=== PATIENT | female | born 1950 | race Caucasian/White ===

== ENCOUNTER 2017-03-05 09:04 | Inpatient (IN) | payer OTHER, BC ==
[2017-02-19 15:22] VITALS: BMI 31.3
--- NOTE | 2017-03-04 08:49 | HP ---
Satellite [facility] [place] - Chief Complaint Chief Complaint: right hip pain - Past Medical History Allergies/Adverse Reactions: Allergies Allergy/AdvReac Type Severity Reaction Status Date / Time No Known Allergies Allergy Verified 02/19/17 15:22 - Current Medications Current Medications: Home Medications Medication Instructions Recorded Atenolol [Tenormin -] 50 mg PO DAILY 02/19/17 Buspirone HCl 15 mg PO DAILY 02/19/17 Cholecalciferol (Vitamin D3) 1 each PO DAILY 02/19/17 [Vitamin D3] Ferrous Sulfate 325 mg PO DAILY 02/19/17 Methadone [Dolophine -] 80 mg PO DAILY 02/19/17 Naproxen [Naprosyn -] 500 mg PO PRN PRN 02/19/17 Sertraline HCl [Zoloft] 200 mg PO DAILY 02/19/17 Satellite Physical Exam - Physical Examination General Appearance: Well Nourished, Well Developed, Alert & Oriented x3 ENT: Clear Lung: Normal air movement Heart: Regular rate & rhythm Extremities: Other (right hip- + ttp, decr rom, nvi xrays show severe hip djd) Neurological: Intact, Alert, Oriented Satellite Impression/Plan - Impression/Plan Impression: right hip djd Operative Procedure: right barrie thr Date to be Performed: 03/05/17
[2017-03-05] MEDS ORDERED: oxyCODONE HCL 10 MG SUSTAINED ACTING TABLET PO ONE (09:28)
[2017-03-05] MEDS ORDERED: TRANEXAMIC ACID 1000 MG/10 ML VIAL IVPUSH ONE (09:28)
[2017-03-05] MEDS ORDERED: CEFAZOLIN 2 GM in DEXTROSE 5%-WATER - 50 ML IVPB ONE (09:28)
[2017-03-05] MEDS ORDERED: GABAPENTIN 300 MG CAPSULE (FP) PO ONE (09:28)
[2017-03-05] MEDS ORDERED: CELECOXIB 200 MG CAPSULE PO ONE (09:28)
[2017-03-05] MEDS ORDERED: BUPIVACAINE HCL/PF (5 MG/ML) 30 ML VIAL IJ ONE (10:59)
[2017-03-05] MEDS ORDERED: MIDAZOLAM HCL 2 MG/2 ML SINGLE DOSE VIAL ONE (10:59)
[2017-03-05] MEDS ORDERED: DEXAMETHASONE SOD PHOSPHATE/PF 10 MG/ML SDV ONE (10:59)
[2017-03-05] MEDS ORDERED: EPINEPHrine/PF 1 MG/1 ML (1:1,000) AMPULE ONE (10:59)
[2017-03-05] MEDS ORDERED: ceFAZolin SODIUM 1 GM VIAL ONE (11:16)
[2017-03-05] MEDS ORDERED: VANCOMYCIN 1,000 MG VIAL (RESTRICTED TO ID ONLY) ONE (11:16)
[2017-03-05] MEDS ORDERED: TRANEXAMIC ACID 1000 MG/10 ML VIAL ONE (12:17)
[2017-03-05] MEDS ORDERED: PROPOFOL 20 ML ONE ×2 (12:29)
[2017-03-05] MEDS ORDERED: MAGNESIUM HYDROX 2400MG/30ML ORAL SUSPENSION 30 ML CUP PO PRN (14:07)
[2017-03-05] MEDS ORDERED: MAG HYDROX/AL HYDROX/SIMETH 30 ML UNIT-DOSE CUP PO PRN (14:07)
--- NOTE | 2017-03-05 14:12 | OP ---
Operative Note - Note: Operative Date: 03/05/17 (bethanie) Pre-Operative Diagnosis: right hip djd Operation: right barrie thr Post-Operative Diagnosis: Same as Pre-op Surgeon: Jax Mckenzie Service Or Work Dispatcher Chief: Tone Hooker Anesthesiologist/PLANT CYTOLOGIST: Kale Melgoza Anesthesia: Spinal, Local Specimens Removed: femoral head Estimated Blood Loss (mls): 300 Operative Report Dictated: Yes
[2017-03-05] MEDS ORDERED: LACTATED RINGERS SOLUTION 1,000 ML IV SCH ×2 (14:15→14:45)
[2017-03-05] MEDS ORDERED: oxyCODONE HCL 5 MG TABLET PO PRN (14:31)
[2017-03-05] MEDS ORDERED: ACETAMINOPHEN 325 MG TABLET (FP) ONE (15:39)
[2017-03-05] MEDS: ACETAMINOPHEN 325 MG TABLET (FP) PO SCH ×3 (15:43→21:23)
[2017-03-05] MEDS: CEFAZOLIN 2 GM/D5W 50 ML IVPB SCH (19:28)
[2017-03-05] MEDS: oxyCODONE HCL 5 MG TABLET PO PRN (19:29)
[2017-03-05] MEDS: SENNOSIDES/DOCUSATE COMBO (SENNA PLUS) TABLET (UD) PO SCH (21:23)
[2017-03-05] MEDS: GABAPENTIN 300 MG CAPSULE (FP) PO SCH (21:23)
[2017-03-05] MEDS: oxyCODONE HCL 10 MG SUSTAINED ACTING TABLET PO SCH (21:23)
[2017-03-06] MEDS: oxyCODONE HCL 5 MG TABLET PO PRN ×4 (03:21→21:25)
[2017-03-06] MEDS: ACETAMINOPHEN 325 MG TABLET (FP) PO SCH ×4 (03:21→21:24)
[2017-03-06] MEDS: CEFAZOLIN 2 GM/D5W 50 ML IVPB SCH (03:22)
[2017-03-06] MEDS: ASPIRIN 325 MG TABLET PO SCH (08:38)
[2017-03-06 09:05] LABS: MCH 32.6 pg (25.7-33.7); MCHC 34.2 g/dl (32.0-36.0); MEAN CELL VOLUME 95.4 fl (80-96); MEAN PLT VOLUME 8.3 fl (7.5-11.1); PLATELET COUNT 178 K/MM3 (134-434); RDW 12.6 % (11.6-15.6); WHITE BLOOD COUNT 8.4 K/mm3 (4.0-10.8)
--- NOTE | 2017-03-06 09:06 | SPEC ---
DATE OF OPERATION: 03/05/2017 PREOPERATIVE DIAGNOSIS: Degenerative joint disease, right hip POSTOPERATIVE DIAGNOSIS: Degenerative joint disease, right hip PROCEDURE: Right total hip replacement with robotic arm navigation assistance (Makoplasty) SURGEON: Dr. Jax Mckenzie SUPERVISOR WATERWORKS: BIJAN Aden ANESTHESIA: Regional with spinal. ANESTHESIOLOGIST: CLOSURE: [place] total hip system with a 52 Press-Fit titanium acetabulum, a size 7 Accolade 2 femoral stem, a ceramic 36-mm -2.5 mm length neck head, No. 1 Vicryl for fascia, 0 and 2-0 subcutaneous, 3-0 Monocryl subcuticular with skin glue for skin. ESTIMATED BLOOD LOSS: Approximately 100 mL. COMPLICATIONS: None. CONDITION: To recovery room in stable condition. DESCRIPTION OF OPERATIVE PROCEDURE: The patient was taken to the operating room. Spinal anesthesia as well as sciatic block was administered by the anesthesiologist. The IV Kefzol and TXA were administered prophylactically prior to the case. The patient was placed in the lateral decubitus position with all prominences well-padded. An EKG pad was secured to the inferior pole of the patella for limb length calculations intraoperatively. The right hip area was prepped and draped in the usual sterile fashion. A 12.0-15.0 cm curved longitudinal incision over the posterolateral aspect of the greater trochanter was made. Hemostasis was achieved with Bovie cautery. Sharp dissection was carried down to the level of the fascia. The fascia was opened the entire length of the incision, spreading the gluteus jason fibers in the direction of their origin. A Charnley retractor was placed in this layer, and care was taken to be far away from the sciatic nerve. The short external rotators were detached off the insertion of the greater trochanter and peeled off the capsule. A posterior capsulectomy was then performed. A checkpoint was malleted into the greater trochanter. Three small stab incisions were done on the iliac crest. Through these stab incisions, threaded guide pins were drilled into the iliac crest. These pins were fastened to the Navigation array. The check point on the greater trochanter, and the EKG pad on the inferior pole of the patella were used to measure preoperative limb length and offset. The hip was then dislocated. The hip was osteotomized at the appropriate level as directed by the preoperative template. Anterior and posterior retractors were placed around the acetabulum. Circumferential labrum was excised. A checkpoint was malleted into the acetabulum superiorly. The acetabulum was then registered with the Navigation device with multiple sites within the acetabulum and around the rim of the acetabulum. I t was then confirmed popping the blue bubbles, confirming ideal position and confirmation of adequate registration with the Navigation device. Using a 48 reamer, which was decided preoperatively on the preoperative template, the robotic arm was brought into the field and was used to ream the acetabulum down to the appropriate depth with the appropriate orientation and inversion applied. After reaming, a good hemispherical bleeding surface was encountered in the acetabulum. A SHERMAN shell of the appropriate size was then malleted into place achieving excellent fit. Confirmation of the appropriate orientation and inversion was confirmed using the probe, and assuring that the acetabular cup was placed in the ideal position as templated preoperatively. A real liner was then clipped into place with a 10 degree lip in the posterior-superior quadrant. Anterior and posterior osteophytes were removed using osteotome. Next, our attention was directed to the femur. The proximal femur was opened with a box chisel, rat-tail, anchovy and serial reamers. This was done until the appropriate reamer achieved good fit and fill of the proximal femur. A trial reduction with the appropriate neck and head, as again measured from our preoperative template, was performed. Limb lengths were confirmed both visually and using the Navigation device, again measuring the inferior pole of the patella and the checkpoint of the greater trochanter. This confirmed ideal position of the femoral component, lengths and offset. The trial components were removed. The real component was malleted into place. The head was cold-welded to the Charnley and the hip was reduced. Again, the hip was found to have equal limb lengths as described previously. The hip was also taken through a range of motion and found to be stable in external rotation and extension, was stable in marked flexion, stable in adduction and internal rotation, and had a positive hang test and negative telescoping. The hip was irrigated with copious amounts of irrigation. Hemostasis was achieved. Vancomycin powder was sprinkled into the joint. A second dose of TXA was administered. The fascia was closed with No. 1 Vicryl interrupted suture, 0 and 2-0 for subcutaneous, and 3-0 Monocryl subcuticular for skin with skin glue. This was followed by an Aquacel dressing. The patient was flipped into the supine position. Bilateral SCDs and an abduction pillow were applied. X-rays showed good position of the components. The patient was awakened from anesthesia and transferred to the recovery room in stable condition. COMPLICATIONS: None. ESTIMATED BLOOD LOSS: Less than 100 mL. Danyelle WHITLEY/[id number]
--- NOTE | 2017-03-06 09:45 | PN ---
Progress Note (short form) - Note Progress Note: Ortho Pt seen and examined s/p right barrie thr pod #1 Selected Entries 03/06/17 06:00 Temperature 98.0 F Pulse Rate 59 L Respiratory 19 Rate Blood Pressure 111/60 Laboratory Tests 03/06/17 07:30 WBC 8.4 D Hgb 11.1 D Hct 32.6 Plt Count 178 D dressing c/d/i, calf soft, nt nvi a/p PT hip precautions dvt ppx pain control d/c home tomorrow if stable
[2017-03-06] MEDS: SERTRALINE HCL 50 MG TABLET (FP) PO SCH (09:52)
[2017-03-06] MEDS: PANTOPRAZOLE 40 MG TABLET (FP) PO SCH (09:54)
[2017-03-06] MEDS: MULTIVITAMINS (DAILY MVI) TABLET (FP) PO SCH (09:54)
[2017-03-06] MEDS: busPIRone HCL 5 MG TABLET PO SCH (09:54)
[2017-03-06] MEDS: GABAPENTIN 300 MG CAPSULE (FP) PO SCH ×2 (09:55→21:25)
[2017-03-06] MEDS: oxyCODONE HCL 10 MG SUSTAINED ACTING TABLET PO SCH ×2 (09:55→21:25)
[2017-03-06] MEDS: FERROUS SO4 325 MG TABLET (FP) PO SCH (09:55)
[2017-03-06] MEDS: SENNOSIDES/DOCUSATE COMBO (SENNA PLUS) TABLET (UD) PO SCH ×2 (09:55→21:25)
[2017-03-06] MEDS: METHADONE HCL 40 MG DISPERSABLE TABLET PO SCH (09:55)
[2017-03-06] MEDS: ATENOLOL 50 MG TABLET (FP) PO SCH (09:56)
[2017-03-06] MEDS ORDERED: PATIENT'S OWN MEDICATION (NON-FORMULARY) (Sertraline Hcl [Zoloft] 200 MG) PO SCH (10:00)
[2017-03-06] MEDS ORDERED: BUSPIRONE HCL 15 MG PO SCH (10:00)
[2017-03-06] MEDS ORDERED: PATIENT'S OWN MEDICATION (NON-FORMULARY) (Ferrous Sulfate [Ferrous Sulfate] 325 MG) PO SCH (10:00)
[2017-03-07] MEDS: ACETAMINOPHEN 325 MG TABLET (FP) PO SCH ×2 (04:00→09:53)
[2017-03-07 06:08] VITALS: BP 98/52; PULSE 75; TEMP 98.7
[2017-03-07] MEDS: ASPIRIN 325 MG TABLET PO SCH (08:14)
[2017-03-07 08:28] LABS: MCH 32.5 pg (25.7-33.7); MCHC 34.1 g/dl (32.0-36.0); MEAN CELL VOLUME 95.5 fl (80-96); MEAN PLT VOLUME 8.4 fl (7.5-11.1); PLATELET COUNT 199 K/MM3 (134-434); RDW 12.7 % (11.6-15.6); WHITE BLOOD COUNT 15.8 K/mm3 (4.0-10.8)
--- NOTE | 2017-03-07 08:30 | PN ---
Progress Note (short form) - Note Progress Note: Ortho Pt seen and examined s/p right barrie thr pod #2 Selected Entries 03/07/17 06:00 Temperature 98.7 F Pulse Rate 75 Respiratory 18 Rate Blood Pressure 98/52 Laboratory Tests 03/06/17 07:30 WBC 8.4 D Hgb 11.1 D Hct 32.6 Plt Count 178 D dressing c/d/i, calf soft, nt nvi a/p PT hip precautions dvt ppx pain control d/c home today f/u in 1 week
--- NOTE | 2017-03-07 08:31 | DS ---
Physical Examination Vital Signs: Vital Signs Temperature 98.7 F 03/07/17 06:00 Pulse Rate 75 03/07/17 06:00 Respiratory Rate 18 03/07/17 06:00 Blood Pressure 98/52 03/07/17 06:00 O2 Sat by Pulse Oximetry (%) 94 L 03/07/17 06:07 Discharge Summary Reason For Visit: OSTEOARTHRITIS Procedures: Principal: s/p right barrie thr Hospital Course: admitted for elective right barrie thr, uneventful post-op, stable for d/c Condition: Good - Instructions Diet, Activity, Other Instructions: Post-op Instructions-Total Hip Replacement Call the office for a follow-up appointment in 1 week - [phone] Aspirin 325mg daily for 6 weeks. Pain medication was sent into your pharmacy. Apply Graduated Compression Stockings (TEDs) to both lower extremities- remove daily for hygiene ONLY Apply Sequential Compression Device (SCDs) to both Lower extremities remove for PT and hygiene ONLY Apply cold packs to affected area for 15 minutes every 2 hours. Physical Therapist will come to your home for the first 5 days. You will be set up with outpatient PT at your first post-operative visit. Patient may ambulate as tolerated-encourage self care (at least every 2-3 hours while awake) with walker or cane Maintain Aquacel (waterproof) dressing to operative wound (will be removed by surgeon at first office visit) Shower with Aquacel dressing in place-if Aquacel integrity compromised, remove and apply dry sterile dressing and notify Orthopedist. DO NOT SHOWER unless Orthopedists approves without Aquacel dressing CONTACT THE OFFICE FOR ANY CHANGE IN YOUR CONDITION (for example-fever greater than 102 degrees,excessive bleeding from operative site, purulent drainage, severe swelling or pain) GO TO THE EMERGENCY ROOM IF THERE IS A MEDICAL EMERGENCY Hip Precautions: * Keep a rolled towel under affected heel while in bed or chair (to keep knee in extension) * Dependent upon approach: * Posterior - do not cross legs; do not sit on low chairs or toilets. * If you have any questions, please do not hesitate to call the office - . Referrals: Jax Mckenzie MD [Staff Physician] - Disposition: VNS/HOME HEALTH CARE - Home Medications Comprehensive Discharge Medication List: Ambulatory Orders Atenolol [Tenormin -] 50 mg PO DAILY 02/19/17 Buspirone HCl 15 mg PO DAILY 02/19/17 Cholecalciferol (Vitamin D3) [Vitamin D3] 1 each PO DAILY 02/19/17 Ferrous Sulfate 325 mg PO DAILY 02/19/17 Methadone [Dolophine -] 80 mg PO DAILY 02/19/17 Naproxen [Naprosyn -] 500 mg PO PRN PRN 02/19/17 Sertraline HCl [Zoloft] 200 mg PO DAILY 02/19/17 Aspirin [ASA -] 325 mg PO DAILY@0800 tablet 03/05/17 Oxycodone HCl/Acetaminophen [Percocet 5-325 mg Tablet -] 1 - 2 tab PO Q6H #50 tab MDD 8 03/05/17 Methadone 80 tablet PO DAILY 03/06/17
[2017-03-07] MEDS: SERTRALINE HCL 50 MG TABLET (FP) PO SCH (09:52)
[2017-03-07] MEDS: METHADONE HCL 40 MG DISPERSABLE TABLET PO SCH (09:52)
[2017-03-07] MEDS: PANTOPRAZOLE 40 MG TABLET (FP) PO SCH (09:53)
[2017-03-07] MEDS: MULTIVITAMINS (DAILY MVI) TABLET (FP) PO SCH (09:53)
[2017-03-07] MEDS: busPIRone HCL 5 MG TABLET PO SCH (09:54)
[2017-03-07] MEDS: GABAPENTIN 300 MG CAPSULE (FP) PO SCH (09:55)
[2017-03-07] MEDS: FERROUS SO4 325 MG TABLET (FP) PO SCH (09:55)
[2017-03-07] MEDS: SENNOSIDES/DOCUSATE COMBO (SENNA PLUS) TABLET (UD) PO SCH (09:56)
[2017-03-07] MEDS: ATENOLOL 50 MG TABLET (FP) PO SCH ×2 (09:56→10:05)
[2017-03-07] MEDS: oxyCODONE HCL 10 MG SUSTAINED ACTING TABLET PO SCH (09:56)
--- NOTE | 2017-03-12 16:50 | PATH ---
Surgical Pathology Report Patient Name: ALEX HAHN Med. Rec. #: [id number] /Age/Gender: 1950 (Age: 66) / F Account: [id number] Location: [facility] Taken: 03/05/2017 Received: 03/05/2017 Reported: 03/12/2017 Physicians: Jax Mckenzie M.D. Specimen(s) Received RIGHT FEMORAL HEAD Clinical History Osteoarthritis right hip Final Diagnosis FEMORAL HEAD, RIGHT, TOTAL HIP REPLACEMENT: DEGENERATIVE JOINT DISEASE. Electronically Signed Janneth Abarca M.D. Gross Description Received in formalin, labeled "right femoral head" and is a 4.9 x 4.7 x 4.5 cm. femoral head with a 1 cm. in length portion of femoral neck attached. The margin of resection is smooth. An area of eburnation is identified. The remaining articular surfaces are [place]-yellow and focally granular. The underlying trabecular bone is [place]-yellow and heterogenous. A personal service representative section is submitted in one cassette following decalcification. AF/03/06/2017 final/03/06/2017
== END 2017-03-07 14:16 | disposition home health service (06) | DRG 470 ==
LOC: FM/S 09:04
PROVIDERS: ADMIT Orthopaedic Surgery; ATTEND Orthopaedic Surgery
PROC: 8E0W0CZ Robotic Assisted Procedure of Trunk Region, Open Approach (ICD-10-PCS; 2017-03-05)
PROC: 0SR90J9 Replacement of Right Hip Joint with Synthetic Substitute, Cemented, Open Approach (ICD-10-PCS; principal; 2017-03-05 12:30)
DX: M16.11 Unilateral primary osteoarthritis, right hip (principal); I10 Essential (primary) hypertension
CPT/HCPCS: 36415; 73502-TC-RT; 85027; 88304-TC; 88311-TC; 94010; 94760; 97116-GP; 97162-GP